=== PATIENT | female | born 1985 | race Caucasian/White ===

== ENCOUNTER 2020-11-19 07:11 | Emergency (ER) | payer OTHER, BC ==
[~2020-11-19] VITALS: Ht 175.3 cm; Wt 99.8 kg
[2020-11-19 07:33] VITALS: BP 127/56
--- NOTE | 2020-11-19 07:36 | NUR ---
Dr. Tesfaye at bedside
[2020-11-19] MEDS ORDERED: IBUPROFEN 400 MG TABLET ONE (07:38)
--- NOTE | 2020-11-19 07:40 | NUR ---
The patient bibs for twisted her left ankle while getting water at 0300 am today. Rates pain 9/10. Will continue to monitor the patient.
[2020-11-19] MEDS ORDERED: IBUPROFEN 400 MG TABLET PO ONE (08:00)
[2020-11-19] MEDS ORDERED: IBUP-1955 PO (08:08)
[2020-11-19] MEDS ORDERED: HYDR-3980 PO (08:08)
[2020-11-19] MEDS ORDERED: HYDROCODONE/APAP 5/325MG TABLET ONE (08:10)
[2020-11-19] MEDS ORDERED: HYDROCODONE/APAP 5/325MG TABLET PO ONE (08:30)
--- NOTE | 2020-11-19 08:34 | NUR ---
Patient discharged to home in stable condition. Written and verbal after care instructions given. Patient verbalizes understanding of instruction.
== END 2020-11-19 08:43 | disposition home or self-care (01) ==
LOC: ER 07:25
DX: S92.352A Displaced fracture of fifth metatarsal bone, left foot, initial encounter for closed fracture (principal); X50.1XXA Overexertion from prolonged static or awkward postures, initial encounter; Y93.89 Activity, other specified; Y92.89 Other specified places as the place of occurrence of the external cause; Y99.8 Other external cause status
CPT/HCPCS: 73630-TC